=== PATIENT | male | born 1950 | race African-American/Black ===

== ENCOUNTER 2017-03-24 11:25 | Outpatient (CLI) | payer MEDICARE ==
[2017-03-24 12:02] LABS: #Basophils 0.1 thou/uL (0.0-0.2); #Eosinphils 0.1 thou/uL (0.0-0.7); #Lymphocytes 2.6 thou/uL (1.20-3.40); #Monocytes 0.4 thou/uL (0.11-0.59); #Neutrophils 2.5 thou/uL (1.40-6.50); %Basophils 1.2 % (0.0-1.0); %Eosinophils 2.6 % (0.0-10.0); %Lymphocytes 45.8 % (21.0-51.0); %Monocytes 6.4 % (0.0-10.0); %Neutrophils 44.1 % (42.0-75.0); Hemoglobin 14.5 g/dL (14.0-18.0); Mean Corpuscular HGB CONC 33.9 g/dL (32.0-36.0); Mean Corpuscular Hemoglobin 29.4 pg (27.0-31.0); Mean Corpuscular Volume 86.6 fl (80.0-94.0); Mean Platelet Volume 8.6 fL (7.4-10.4); Platelet Count 237 thou/uL (130-400); RBC Distribution Width 12.5 % (11.5-14.5); Red Blood Cell (RBC) Count 4.94 mill/uL (4.70-6.10); White Blood Cell (WBC) Count 5.6 thou/uL (4.8-10.8)
[2017-03-24 12:12] LABS: ALT (SGPT) 17 U/L (8-55); AST (SGOT) 18 U/L (5-34); Albumin 4.1 g/dL (3.4-4.8); Alkaline Phosphatase 69 U/L (40-150); Anion Gap 13 mmol/L (10-20); BUN (Urea Nitrogen) 18 mg/dL (8.4-25.7); Bilirubin, Total 0.4 mg/dL (0.2-1.2); Calc. Creatinine Clearance 0 mL/min (70-130); Calcium 9.4 mg/dL (7.8-10.44); Carbon Dioxide 25 mmol/L (23-31); Cardiac Risk 3.3 (Less than 4.5); Chloride 104 mmol/L (98-107); Cholesterol 187 mg/dl (< 200 Desired); Estimated GFR-MDRD Greater than 90; Globulin 3.5 g/dL (2.4-3.5); Glucose 84 mg/dL (80-115); HDL Cholesterol 56 mg/dL (>60 Neg Risk); LDL Cholesterol, Calculated 112 mg/dL; Protein, Total 7.6 g/dL (5.8-8.1); Sodium 138 mmol/L (136-145); Triglycerides 94 mg/dL (Less than 150)
== END 2017-03-24 11:26 | disposition home or self-care (01) ==
LOC: HPCALD 11:25
PROVIDERS: ATTEND Family Medicine
DX: E78.5 Hyperlipidemia, unspecified (principal); I63.9 Cerebral infarction, unspecified
CPT/HCPCS: 36415; 80053; 80061; 84443; 85025

== ENCOUNTER 2017-03-26 11:03 | Outpatient (CLI) | payer MEDICARE ==
[2017-03-26 11:56] LABS: Free T4 (Free Thyroxine) 0.78 ng/dL (0.70-1.48); Thyroid Stimulating Hormone 0.9705 uIU/mL (0.35-4.94)
== END 2017-03-26 11:04 | disposition home or self-care (01) ==
LOC: HPCALD 11:03
PROVIDERS: ATTEND Family Medicine
DX: E05.90 Thyrotoxicosis, unspecified without thyrotoxic crisis or storm (principal)
CPT/HCPCS: 36415; 84439; 84443; 84480

== ENCOUNTER 2018-09-23 12:42 | Emergency (ER) | payer MEDICARE ==
[2018-09-23 13:14] LABS: #Basophils 0.1 thou/uL (0.0-0.2); #Eosinphils 0.2 thou/uL (0.0-0.7); #Lymphocytes 2.5 thou/uL (1.20-3.40); #Monocytes 0.5 thou/uL (0.11-0.59); #Neutrophils 2.7 thou/uL (1.40-6.50); %Basophils 1.7 % (0.0-1.0); %Eosinophils 3.7 % (0.0-10.0); %Monocytes 7.7 % (0.0-10.0); Hemoglobin 16.2 g/dL (14.0-18.0); Mean Corpuscular HGB CONC 32.6 g/dL (32.0-36.0); Mean Corpuscular Hemoglobin 28.5 pg (27.0-31.0); Mean Corpuscular Volume 87.5 fL (78.0-98.0); Mean Platelet Volume 9.1 fL (7.4-10.4); Platelet Count 200 thou/uL (130-400); RBC Distribution Width 13.1 % (11.5-14.5); Red Blood Cell (RBC) Count 5.68 mill/uL (4.70-6.10); White Blood Cell (WBC) Count 5.9 thou/uL (4.8-10.8)
[2018-09-23 13:20] LABS: CO2 Tension (PvCO2) 47.8 mmHg (40.0-50.0); pH (Venous) 7.351 (7.320-7.430)
[2018-09-23 13:21] LABS: Bicarbonate (HCO3v) 26.4 mmol/L (22.0-28.0); Calcium, Ionized 1.13 mmol/L (See Comments:); Chloride 101 mmol/L (98-107); Hemoglobin - Calc 17.8 g/dL (14.0-18.0); Potassium 3.8 mmol/L (3.5-5.1); Sodium 137 mmol/L (138-145); T. Carbon Dioxide 27.9 mmol/L (22.0-28.0); vO2 Saturation-calc 67.1 % (60.0-85.0)
[2018-09-23] MEDS ORDERED: Amlodipine 5 MG TAB ONE (13:25)
[2018-09-23] MEDS ORDERED: Lisinopril 20 MG TAB ONE (13:27)
[2018-09-23 13:38] LABS: ALT (SGPT) 20 U/L (8-55); AST (SGOT) 23 U/L (5-34); Albumin 4.5 g/dL (3.4-4.8); Alkaline Phosphatase 80 U/L (40-150); Anion Gap 15 mmol/L (10-20); BUN (Urea Nitrogen) 12 mg/dL (8.4-25.7); Bilirubin, Total 0.8 mg/dL (0.2-1.2); Calc. Creatinine Clearance 0 mL/min (70-130); Calcium 9.5 mg/dL (7.8-10.44); Chloride 102 mmol/L (98-107); Estimated GFR-MDRD Greater than 90; Glucose 75 mg/dL (80-115); Potassium 3.9 mmol/L (3.5-5.1); Protein, Total 8.5 g/dL (5.8-8.1); Sodium 137 mmol/L (136-145)
[2018-09-23 13:46] LABS: Carbon Dioxide 24 mmol/L (23-31)
--- NOTE | 2018-09-23 16:30 | CT ---
CT ANGIO OF THE CHEST WITH CONTRAST 09/23/[address] of the chest was performed for evaluation of dyspnea and an elevated D-dimer. Axial slices were acquired, then oblique coronal reformations were done postprocessing. There is excellent opacification of the pulmonary arteries. No internal defects were seen to suggest emboli. There was no sign of aortic aneurysm or dissection. No mediastinal mass or adenopathy of conc scott was seen. There may be a few calcifications in the LAD. There are no pericardial effusions. The lungs are clear except for some minor dependent atelectasis or scarring on the right. No nodules of concern were found. There are no effusions. Scans through the upper abdomen showed gallstones in the gallbladder. The other visible upper abdomin al structures were unremarkable. IMPRESSION: 1. No evidence of pulmonary embolism. 2. Gallstones. POS: HOME
--- NOTE | 2018-09-23 16:32 | RAD ---
PORTABLE CHEST: Date: 09-23-18 FINDINGS: The heart is mildly enlarged on this portable film from 1237, but there are no congestive changes or pleural effusions. No edema is present. There is some minimal linear streaking in the right lung base s, probably atelectasis. IMPRESSION: Mild cardiomegaly. POS: HOME
== END 2018-09-23 15:13 | disposition home or self-care (01) ==
LOC: BURERS 12:42
DX: I10 Essential (primary) hypertension (principal); Z86.73 Personal history of transient ischemic attack (TIA), and cerebral infarction without residual deficits
CPT/HCPCS: 71045; 71275; 80053; 82330; 82435; 82803; 83880; 84132; 84295; 84484; 85025; 85379; 87804; 93005

== ENCOUNTER 2019-03-04 10:37 | Outpatient (CLI) | payer MEDICARE ==
--- NOTE | 2019-03-04 13:23 | ULT ---
Scrotal sonogram HISTORY: Scrotal pain and swelling. FINDINGS: Right testicle is 4.1 cm in length and the left is 4.3 cm. Each has a normal sonographic ap pearance with good color and spectral Doppler flow. Large amount of fluid is present within each side of the scrotum. IMPRESSION: No evidence of testicular mass or torsion. Large bilateral hydroceles. Cause is not evident.
== END 2019-03-04 10:38 | disposition home or self-care (01) ==
LOC: BURULT 10:37
PROVIDERS: ATTEND Family Medicine
DX: N50.89 Other specified disorders of the male genital organs (principal); N43.3 Hydrocele, unspecified
CPT/HCPCS: 76870

== ENCOUNTER 2021-07-16 12:15 | Emergency (ER) | payer MEDICARE ==
[2021-07-16 13:14] LABS: #Basophils 0.1 thou/uL (0.0-0.2); #Eosinphils 0.2 thou/uL (0.0-0.7); #Lymphocytes 1.6 thou/uL (1.20-3.40); #Monocytes 0.7 thou/uL (0.11-0.59); #Neutrophils 4.4 thou/uL (1.40-6.50); %Basophils 1.3 % (0.0-1.0); %Eosinophils 3.1 % (0.0-10.0); %Lymphocytes 22.4 % (21.0-51.0); %Monocytes 9.9 % (0.0-10.0); %Neutrophils 63.3 % (42.0-75.0); Hemoglobin 12.4 g/dL (14.0-18.0); Mean Corpuscular HGB CONC 32.2 g/dL (32.0-36.0); Mean Corpuscular Hemoglobin 28.6 pg (27.0-31.0); Mean Corpuscular Volume 88.7 fL (78.0-98.0); Mean Platelet Volume 7.3 fL (7.4-10.4); Platelet Count 178 thou/uL (130-400); RBC Distribution Width 12.5 % (11.5-14.5); Red Blood Cell (RBC) Count 4.36 mill/uL (4.70-6.10)
[2021-07-16 13:32] LABS: ALT (SGPT) 130 U/L (8-55); AST (SGOT) 232 U/L (5-34); Albumin 3.4 g/dL (3.4-4.8); Alkaline Phosphatase 60 U/L (40-110); Anion Gap 13 mmol/L (10-20); BUN (Urea Nitrogen) 15 mg/dL (8.4-25.7); Bilirubin, Total 0.7 mg/dL (0.2-1.2); Calc. Creatinine Clearance 0 mL/min (70-130); Calcium 8.9 mg/dL (7.8-10.44); Carbon Dioxide 26 mmol/L (23-31); Chloride 102 mmol/L (98-107); Globulin 3.4 g/dL (2.4-3.5); Glucose 92 mg/dL (83-110); Potassium 3.9 mmol/L (3.5-5.1); Protein, Total 6.8 g/dL (5.8-8.1); Sodium 137 mmol/L (136-145)
[2021-07-16 15:02] LABS: Bilirubin Negative (Negative); Blood, Urine Trace (Negative); Clarity Clear (Clear); Glucose, Urine (Dipstick) Negative (Negative); Ketone, Urine Negative (Negative); Leukocyte Negative (Negative); Nitrite Negative (Negative); Protein, Urine (Dipstick) Negative (Neg-Trace); Specific Gravity, Urine 1.015 (1.005-1.030); pH, Urine 6.5 (5.0-9.0)
[2021-07-16 15:08] LABS: Bacteria/HPF 1+ HPF (None Seen); RBC/HPF 0-3 HPF (0-3); Squamous Epithelial None Seen HPF (0-3); WBC/HPF 0-3 HPF (0-3)
== END 2021-07-16 16:25 | disposition home or self-care (01) ==
LOC: BURERS 12:15
DX: S09.90XA Unspecified injury of head, initial encounter (principal); K04.7 Periapical abscess without sinus; I10 Essential (primary) hypertension; W19.XXXA Unspecified fall, initial encounter
CPT/HCPCS: 51701; 70450; 71045; 80053; 81003; 81015; 84484; 85025; 93005

== ENCOUNTER 2022-03-12 14:18 | Inpatient (IN) | payer MEDICARE ==
[2022-03-12] MEDS ORDERED: Acetaminophen 650 MG Suppository PR PRN (16:30)
[2022-03-12] MEDS ORDERED: HYDROcodone/Acetaminophen 5/325 mg Tablet PO PRN ×2 (16:30→16:31)
[2022-03-12] MEDS ORDERED: Acetaminophen 325 MG TAB PO PRN (16:30)
[2022-03-12] MEDS ORDERED: Ondansetron ODT 4 MG TAB PO PRN (16:31)
[2022-03-12] MEDS ORDERED: Calcium Carbonate 500 MG ChewTAB PO PRN (16:32)
[2022-03-12] MEDS ORDERED: Ondansetron PF 4 MG/2 ML Vial IVP PRN (16:32)
[2022-03-12] MEDS ORDERED: Senokot S 8.6-50 MG TAB PO PRN (16:34)
[2022-03-12] MEDS ORDERED: Bisacodyl 10 MG SUPP PR PRN (16:34)
[2022-03-12] MEDS ORDERED: Bisacodyl 5 MG TAB PO PRN (16:34)
[2022-03-12] MEDS ORDERED: Loperamide HCl 2 MG CAP PO PRN (16:35)
[2022-03-12] MEDS ORDERED: Zolpidem Tartrate 5 MG TAB PO PRN (16:37)
[2022-03-12] MEDS ORDERED: Guaifenesin DM 100-10/5 ML UDCUP PO PRN (16:38)
[2022-03-12] MEDS: Mirtazapine 15 MG TAB PO SCH (21:50)
[2022-03-12] MEDS: Atorvastatin Calcium 40 MG TAB PO SCH (21:50)
[2022-03-12] MEDS: Lisinopril 10 MG TAB PO SCH (21:51)
[2022-03-13] MEDS: Ascorbic Acid 500 mg Chewable Tablet PO SCH (09:47)
[2022-03-13] MEDS: Amlodipine 5 MG TAB PO SCH (09:47)
[2022-03-13] MEDS: Tamsulosin HCl 0.4 MG CAP PO SCH (09:47)
[2022-03-13] MEDS: Citalopram 20 MG TAB PO SCH (09:48)
[2022-03-13] MEDS: Cholecalciferol (Vitamin D3) 400 UNITS TAB PO SCH (09:48)
[2022-03-13] MEDS: Lisinopril 10 MG TAB PO SCH ×2 (09:48→20:50)
[2022-03-13] MEDS: Furosemide 20 MG TAB PO SCH (09:48)
[2022-03-13] MEDS: Clopidogrel Bisulfate 75 MG TAB PO SCH (09:48)
[2022-03-13 11:51] VITALS: BMI 24.7
[2022-03-13] MEDS: Mirtazapine 15 MG TAB PO SCH (20:50)
[2022-03-13] MEDS: Atorvastatin Calcium 40 MG TAB PO SCH (20:50)
[2022-03-14] MEDS: Amlodipine 5 MG TAB PO SCH (08:26)
[2022-03-14] MEDS: Lisinopril 10 MG TAB PO SCH ×2 (08:26→20:42)
[2022-03-14] MEDS: Tamsulosin HCl 0.4 MG CAP PO SCH (08:26)
[2022-03-14] MEDS: Ascorbic Acid 500 mg Chewable Tablet PO SCH (08:26)
[2022-03-14] MEDS: Furosemide 20 MG TAB PO SCH (08:26)
[2022-03-14] MEDS: Cholecalciferol (Vitamin D3) 400 UNITS TAB PO SCH (08:27)
[2022-03-14] MEDS: Citalopram 20 MG TAB PO SCH (08:27)
[2022-03-14] MEDS: Clopidogrel Bisulfate 75 MG TAB PO SCH (08:27)
[2022-03-14 17:45] LABS: Bilirubin Negative (Negative); Blood, Urine Negative (Negative); Clarity Slightly Cloudy (Clear); Glucose, Urine (Dipstick) Negative (Negative); Ketone, Urine Negative (Negative); Leukocyte Negative (Negative); Nitrite Negative (Negative); Protein, Urine (Dipstick) Negative (Neg-Trace)
[2022-03-14 17:53] LABS: Bacteria/HPF 1+ HPF (None Seen); RBC/HPF 0-3 HPF (0-3); Renal Epithelial 0-3 HPF (None Seen); Squamous Epithelial 0-3 HPF (0-3); Urine Culture Reflex No No
[2022-03-14] MEDS: Mirtazapine 15 MG TAB PO SCH (20:42)
[2022-03-14] MEDS: Atorvastatin Calcium 40 MG TAB PO SCH (20:43)
[2022-03-15] MEDS: Ascorbic Acid 500 mg Chewable Tablet PO SCH (08:29)
[2022-03-15] MEDS: Tamsulosin HCl 0.4 MG CAP PO SCH (08:30)
[2022-03-15] MEDS: Furosemide 20 MG TAB PO SCH (08:30)
[2022-03-15] MEDS: Citalopram 20 MG TAB PO SCH (08:30)
[2022-03-15] MEDS: Clopidogrel Bisulfate 75 MG TAB PO SCH (08:30)
[2022-03-15] MEDS: Cholecalciferol (Vitamin D3) 400 UNITS TAB PO SCH (08:30)
[2022-03-15] MEDS: Amlodipine 5 MG TAB PO SCH (08:30)
[2022-03-15] MEDS: Lisinopril 10 MG TAB PO SCH ×2 (08:30→20:07)
[2022-03-15] MEDS: Atorvastatin Calcium 40 MG TAB PO SCH (20:06)
[2022-03-15] MEDS: Mirtazapine 15 MG TAB PO SCH (20:07)
[2022-03-16] MEDS: Lisinopril 10 MG TAB PO SCH ×2 (09:00→20:26)
[2022-03-16] MEDS: Furosemide 20 MG TAB PO SCH (10:04)
[2022-03-16] MEDS: Ascorbic Acid 500 mg Chewable Tablet PO SCH (10:04)
[2022-03-16] MEDS: Cholecalciferol (Vitamin D3) 400 UNITS TAB PO SCH (10:04)
[2022-03-16] MEDS: Tamsulosin HCl 0.4 MG CAP PO SCH (10:04)
[2022-03-16] MEDS: Citalopram 20 MG TAB PO SCH (10:05)
[2022-03-16] MEDS: Amlodipine 5 MG TAB PO SCH (10:05)
[2022-03-16] MEDS: Clopidogrel Bisulfate 75 MG TAB PO SCH (10:05)
[2022-03-16] MEDS: Atorvastatin Calcium 40 MG TAB PO SCH (20:26)
[2022-03-16] MEDS: Mirtazapine 15 MG TAB PO SCH (20:26)
[2022-03-17] MEDS: Clopidogrel Bisulfate 75 MG TAB PO SCH (10:26)
[2022-03-17] MEDS: Amlodipine 5 MG TAB PO SCH (10:26)
[2022-03-17] MEDS: Citalopram 20 MG TAB PO SCH (10:27)
[2022-03-17] MEDS: Ascorbic Acid 500 mg Chewable Tablet PO SCH (10:27)
[2022-03-17] MEDS: Cholecalciferol (Vitamin D3) 400 UNITS TAB PO SCH (10:28)
[2022-03-17] MEDS: Tamsulosin HCl 0.4 MG CAP PO SCH (10:28)
[2022-03-17] MEDS: Lisinopril 10 MG TAB PO SCH ×2 (10:30→20:43)
[2022-03-17] MEDS: Furosemide 20 MG TAB PO SCH (10:30)
[2022-03-17] MEDS: Atorvastatin Calcium 40 MG TAB PO SCH (20:42)
[2022-03-17] MEDS: Mirtazapine 15 MG TAB PO SCH (20:42)
[2022-03-18] MEDS: Amlodipine 5 MG TAB PO SCH (09:39)
[2022-03-18] MEDS: Tamsulosin HCl 0.4 MG CAP PO SCH (09:40)
[2022-03-18] MEDS: Citalopram 20 MG TAB PO SCH (09:40)
[2022-03-18] MEDS: Lisinopril 10 MG TAB PO SCH ×2 (09:40→19:44)
[2022-03-18] MEDS: Ascorbic Acid 500 mg Chewable Tablet PO SCH (09:40)
[2022-03-18] MEDS: Clopidogrel Bisulfate 75 MG TAB PO SCH (09:40)
[2022-03-18] MEDS: Furosemide 20 MG TAB PO SCH (09:40)
[2022-03-18] MEDS: Cholecalciferol (Vitamin D3) 400 UNITS TAB PO SCH (09:41)
[2022-03-18] MEDS: Mirtazapine 15 MG TAB PO SCH (19:44)
[2022-03-18] MEDS: Atorvastatin Calcium 40 MG TAB PO SCH (21:28)
[2022-03-19 06:03] VITALS: TEMP 97.8
[2022-03-19] MEDS: Furosemide 20 MG TAB PO SCH (10:07)
[2022-03-19] MEDS: Clopidogrel Bisulfate 75 MG TAB PO SCH (10:08)
[2022-03-19] MEDS: Citalopram 20 MG TAB PO SCH (10:08)
[2022-03-19] MEDS: Lisinopril 10 MG TAB PO SCH (10:08)
[2022-03-19] MEDS: Ascorbic Acid 500 mg Chewable Tablet PO SCH (10:08)
[2022-03-19] MEDS: Tamsulosin HCl 0.4 MG CAP PO SCH (10:08)
[2022-03-19 10:09] VITALS: BP 127/77
[2022-03-19] MEDS: Amlodipine 5 MG TAB PO SCH (10:09)
[2022-03-19] MEDS: Cholecalciferol (Vitamin D3) 400 UNITS TAB PO SCH (10:09)
== END 2022-03-19 13:25 | DRG 948 ==
LOC: BURMED 14:50
PROVIDERS: ADMIT Family Medicine; ATTEND Family Medicine
DX: R53.1 Weakness (principal); I69.354 Hemiplegia and hemiparesis following cerebral infarction affecting left non-dominant side; F01.50 Vascular dementia, unspecified severity, without behavioral disturbance, psychotic disturbance, mood disturbance, and anxiety; I10 Essential (primary) hypertension; E78.5 Hyperlipidemia, unspecified; Z86.16 Personal history of COVID-19; Z79.899 Other long term (current) drug therapy; Z79.02 Long term (current) use of antithrombotics/antiplatelets
CPT/HCPCS: 81001; 87086

== ENCOUNTER 2022-08-06 14:34 | Emergency (ER) | payer MEDICARE, MEDICAID ==
[2022-08-06 15:37] LABS: Hemoglobin 15.3 g/dL (14.0-18.0); Mean Corpuscular HGB CONC 32.3 g/dL (32.0-36.0); Mean Corpuscular Hemoglobin 27.2 pg (27.0-31.0); Mean Corpuscular Volume 84.3 fl (78.0-98.0); Mean Platelet Volume 8.2 fL (7.4-10.4); Platelet Count 284 10x3/uL (130-400); RBC Distribution Width 13.3 % (11.5-14.5); Red Blood Cell (RBC) Count 5.63 mill/uL (4.70-6.10); White Blood Cell (WBC) Count 3.9 10x3/uL (4.8-10.8)
[2022-08-06 15:44] LABS: ALT (SGPT) 20 U/L (8-55); AST (SGOT) 34 U/L (5-34); Albumin 3.6 g/dL (3.4-4.8); Alkaline Phosphatase 111 U/L (40-110); Anion Gap 16 mmol/L (10-20); BUN (Urea Nitrogen) 18 mg/dL (8.4-25.7); Bilirubin, Total 0.3 mg/dL (0.2-1.2); Calc. Creatinine Clearance 0 mL/min (70-130); Calcium 8.4 mg/dL (7.8-10.44); Carbon Dioxide 21 mmol/L (23-31); Chloride 104 mmol/L (98-107); Estimated GFR 90; Globulin 3.9 g/dL (2.4-3.5); Glucose 153 mg/dL (83-110); Potassium 4.7 mmol/L (3.5-5.1); Protein, Total 7.5 g/dL (5.8-8.1); Sodium 136 mmol/L (136-145)
[2022-08-06 15:45] LABS: Bilirubin Negative (Negative); Blood, Urine Negative (Negative); Clarity Clear (Clear); Glucose, Urine (Dipstick) Negative (Negative); Ketone, Urine Trace mg/dL (Negative); Leukocyte Negative (Negative); Nitrite Negative (Negative); Protein, Urine (Dipstick) Trace mg/dL (Neg-Trace); pH, Urine 5.5 (5.0-9.0)
[2022-08-06 15:46] LABS: Specific Gravity, Urine 1.025 (1.002-1.036)
[2022-08-06 15:59] LABS: Band 2 % (5-11); Eosinophils 2 % (0-10); Lymphocytes 35 % (21-51); MDiff Complete? YES; Monocytes 14 % (0-10); Neutrophil 46 % (42-75); Platelet Morphology Comment Appears Adequate; RBC Morphology Normal
[2022-08-06 16:44] LABS: SARS-CoV-2 NAA Rapid Test Not Detected (NotDetected)
== END 2022-08-06 20:13 ==
LOC: BURERS 14:34
DX: J10.1 Influenza due to other identified influenza virus with other respiratory manifestations (principal); R53.1 Weakness; I10 Essential (primary) hypertension; Z20.822 Contact with and (suspected) exposure to COVID-19; Z79.899 Other long term (current) drug therapy
CPT/HCPCS: 71045; 80053; 81003; 83605; 84484; 85025; 93005